=== PATIENT | female | born 1955 | race Caucasian/White ===

== ENCOUNTER → 2024-04-11 13:22 | Outpatient (REF) | payer OTHER, SELFPAY | LOC: WOUND 13:22 | PROVIDERS: ATTENDING PHYSICIAN Surgery; FAMILY PHYSICIAN Internal Medicine | DX: L89.893 Pressure ulcer of other site, stage 3 (principal); G20.B2 Parkinson's disease with dyskinesia, with fluctuations; R41.0 Disorientation, unspecified; I10 Essential (primary) hypertension; Z86.73 Personal history of transient ischemic attack (TIA), and cerebral infarction without residual deficits | CPT/HCPCS: 99213 ==